=== PATIENT | female | born 1990 | race Caucasian/White ===

== ENCOUNTER 2020-04-05 12:19 | Emergency (ER) | payer OTHER ==
[~2020-04-05] VITALS: Ht 170.2 cm; Wt 131.5 kg
[~2020-04-05 12:19] MED LIST: PERCOCET 5-3251 EACH PO; PRENATAL
[2020-04-05 13:24] LABS: BASOPHILS 0.6 % (0.0-2.0); EOSINOPHILS 3.4 % (0.0-3.0); HEMATOCRIT 37.9 % (37.0-47.0); HEMOGLOBIN 13.6 gm/dL (12.0-15.0); LYMPHOCYTES 21.6 % (24.0-44.0); MCH 32.3 pg (26.0-34.0); MCHC 35.8 g/dL (28.0-37.0); MCV 90.2 fL (80.0-100.0); PLATELET COUNT 244 thou/uL (150-400); POLYS 70.4 % (36.0-66.0); RDW 12.5 % (10.5-14.5)
[2020-04-05 13:33] LABS: CALCIUM 8.9 mg/dL (8.5-10.1); CREATININE 0.8 mg/dL (0.6-1.0); POTASSIUM 3.6 mmol/L (3.5-5.1)
[2020-04-05 13:41] LABS: URINE BILIRUBIN NEGATIVE (Negative); URINE BLOOD NEGATIVE (Negative); URINE CLARITY CLEAR; URINE COLOR YELLOW; URINE GLUCOSE-RANDOM* NEGATIVE (Negative); URINE KETONES NEGATIVE (Negative); URINE LEUKOCYTES-REFLEX NEGATIVE (Negative); URINE NITRITE-REFLEX NEGATIVE (Negative); URINE PROTEIN (DIPSTICK) NEGATIVE (Negative); URINE UROBILINOGEN 0.2 E.U./dl (0.2-1.0)
[2020-04-05 16:07] LABS: ALBUMIN 3.2 g/dL (3.4-5.0); DIRECT BILIRUBIN < 0.1 mg/dL (<0.1-0.2); SGOT 14 U/L (15-37); SGPT 19 U/L (30-65); TOTAL BILIRUBIN 0.3 mg/dL (0.2-1.0)
[2020-04-05] MEDS ORDERED: REGLAN 10 MG TA10 MG PO (16:25)
[2020-04-05 16:29] VITALS: BP 128/56
--- NOTE | 2020-04-06 08:16 | EKG ---
[facility] [place] [address] ELECTROCARDIOGRAM REPORT Name: LOTTIE BAEZ Room #: [facility]#: [id number] Admission: 04/05/20 Attend Phys: Discharge: 04/05/20 Date of : [birth year] Report #: [id number] THIS REPORT FOR: cc: NATALIIA - Rosalinda family physician/PCP NATALIIA - Rosalinda family physician/PCP Janes Pennington MD ~ THIS REPORT FOR: //name// [facility] ED Test Date: 2020-04-05 Test Time: 13:21:46 Pat Name: LOTTIE BAEZ Department: Room: Gender: [employer] Superintendent: dante : 1990 Requested By: Jj Anderson Order Number: [id number] MD: Janes Pennington Measurements Intervals [place] Rate: 79 P: 42 MO: 128 QRS: 41 QRSD: 98 T: 10 QT: 378 QTc: 434 Interpretive Statements Sinus rhythm No previous ECG available for comparison Electronically Signed On 04-06-2020 8:16:20 CDT by Janes Pennington [email or web address] <ELECTRONICALLY SIGNED> By: Janes Pennington MD 04/06/2016 132 20 Janes Pennington MD /VISHAL
== END 2020-04-05 16:30 | disposition home or self-care (01) ==
LOC: ER 12:19
PROVIDERS: Emergency Medicine
DX: O99.351 Diseases of the nervous system complicating pregnancy, first trimester (principal); R42 Dizziness and giddiness; O21.8 Other vomiting complicating pregnancy; Z3A.00 Weeks of gestation of pregnancy not specified